=== PATIENT | female | born 1950 | race American Indian/Alaskan Native ===

== ENCOUNTER 2018-05-18 23:50 | Emergency (ER) | payer OTHER ==
[2018-05-19 00:01] VITALS: BMI 37.1
[2018-05-19 00:03] VITALS: RESP 16; TEMP 98.3
--- NOTE | 2018-05-19 01:04 | ED PDOC ---
Arrival/HPI - General Chief Complaint: High Blood Pressure Time Seen by Provider: 05/18/18 23:57 Historian: Patient - History of Present Illness Narrative History of Present Illness (Text): 05/19/18 23:57 Isabel Pereira is a 68 year old female, with a past medical history of hypertension, arthritis, hyperlipidemia, and constipation, who presents to the emergency room complaining of hypertension. Patient also notes associated frontal headache described as heaviness above the left eye. Patient appreciates blood pressure of 196/110 at home. Patient states checking her blood pressure bid and normally reports pressures between 120-130 / 90. Patient informs taking metropolol and losartan for hypertension, but has since stopped taking losartan since 1 week due to recall. Patient denies any fevers, chills, dizziness, vision changes, chest pain, shortness of breath, dyspnea on exertion, cough, abdominal pain, nausea, vomiting, diarrhea, dysuria, hematuria, back pain, neck pain, or any other complaint. Time/Duration: Prior to Arrival Symptom Onset: Sudden Symptom Course: Unchanged Quality: Other (headache describes as "heaviness") Activities at Onset: Light Context: Home Past Medical History - Provider Review Nursing Documentation Reviewed: Yes - Infectious Disease Hx of Infectious Diseases: None - Cardiac Hx Hypertension: Yes - Pulmonary Hx Respiratory Disorders: No - Hematological/Oncological Hx Hepatitis B: Yes - Musculoskeletal/Rheumatological Hx Arthritis: Yes - Psychiatric Hx Substance Use: No - Surgical History Other/Comment: lump removed from left breast - Anesthesia Hx Anesthesia: No Family/Social History - Physician Review Nursing Documentation Reviewed: Yes Family/Social History: No Known Family HX Smoking Status: Never Smoked Hx Alcohol Use: No Hx Substance Use: No Allergies/Home Meds Allergies/Adverse Reactions: Allergies No Known Allergies Allergy (Verified 05/18/18 23:58) Review of Systems - Physician Review All systems were reviewed & negative as marked: Yes - Review of Systems Constitutional: absent: Fevers, Other (chills) Eyes: absent: Vision Changes Respiratory: absent: SOB, Cough Cardiovascular: Other (Hypertension). absent: Chest Pain, [place]AN[place] Gastrointestinal: absent: Abdominal Pain, Diarrhea, Nausea, Vomiting Genitourinary Female: absent: Dysuria, Hematuria Musculoskeletal: absent: Back Pain, Neck Pain Neurological: Headache (headache described as "heaviness" above left eye). absent: Dizziness Physical Exam Vital Signs Reviewed: Yes Vital Signs Temp Pulse Pulse Resp BP BP Pulse Ox 05/19/18 00:39 67 153/81 H 05/19/18 00:10 65 153/81 H 05/18/18 23:51 98.3 F 72 16 153/81 H 98 Temperature: Afebrile Blood Pressure: Normal Pulse: Regular Respiratory Rate: Normal Appearance: Positive for: Well-Appearing, Non-Toxic, Comfortable Pain Distress: None Mental Status: Positive for: Alert and Oriented X 3 - Systems Exam Head: Present: Atraumatic, Normocephalic Pupils: Present: PERRL Extroacular Muscles: Present: EOMI Conjunctiva: Present: Normal Mouth: Present: Moist Mucous Membranes Neck: Present: Normal Range of Motion Respiratory/Chest: Present: Clear to Auscultation, Good Air Exchange. No: Respiratory Distress, Accessory Muscle Use Cardiovascular: Present: Regular Rate and Rhythm, Normal S1, S2. No: Murmurs Abdomen: No: Tenderness, Distention, Peritoneal Signs Back: Present: Normal Inspection Upper Extremity: Present: Normal Inspection. No: Cyanosis, Edema Lower Extremity: Present: Normal Inspection. No: Edema Skin: Present: Warm, Dry, Normal Color. No: Rashes Psychiatric: Present: Alert, Oriented x 3, Normal Insight, Normal Concentration Medical Decision Making ED Course and Treatment: 05/19/18 23:57 Impression: Patient is a 68 year old female who presents to the emergency department complaining of hypertension. Patient appreciates blood pressure of 196/110 prior to arrival. Patient notes her blood pressure is usually around 120 - 130 / 80. Patient reports associated headache above left eye. Differential Diagnosis included but are not limited to: Plan: -- CT Head w/o contrast -- EKG -- Tylenol 325 mg -- lisinopril -- Reassess and disposition Prior Visits: Notes and results from previous visits were reviewed. Progress Notes: 05/19/18 21:04 - RAD Interpretation Narrative RAD Interpretations (Text): 05/19/18 12:57 CT Head shows: COMMENTS: There is normal configuration of sella turcica. There are no intra or extra- axial collections. There is no mass effect or midline shift. There is no evidence of hematoma formation. No hydrocephalus is present. The ventricles are symmetrical. No abnormal calcifications are present. There is diffuse age-appropriate cerebellar and cerebral atrophy with proportionally dilated ventricles and cortical sulci. There are bilateral periventricular and subcortical white matter hypolucencies compatible with mild chronic microvascular disease. Otherwise, no significant focal abnormalities are seen either in the posterior fossa or supratentorial compartment. IMPRESSION: 1. Age-appropriate cerebellar and cerebral atrophy. 2. Mild chronic microvascular disease. 3. No evidence of acute intracranial pathology. Electronically signed on May 19, 2018 2:02:52 AM EDT by: Olamide Parker M.D., Certified by JOHN PAUL, MSK, Neuroradiology Radiology Orders: 05/19/18 00:21 HEAD W/O CONTRAST [CT] Stat Media Planner / Buyer: Radiologist - Medication Orders Current Medication Orders: Discontinued Medications Acetaminophen (Tylenol 325mg Tab) 650 mg PO STAT STA Stop: 05/19/18 00:24 Last Admin: 05/19/18 00:39 Dose: 650 mg CHARITY Pain/Vitals Document 05/19/18 00:39 KV (Rec: 05/19/18 00:40 KV [id number]) Pain Reassessment Is This A Pain ReAssessment? No Sleep Is patient sleeping during reassessment? No Presence of Pain Presence of Pain Yes Pain Scale Used Protocol: PSCALES Pain Scale Used Numeric Location Pain Location Body Train Controller Description Constant Intensity 5 Scale Used Numeric Lisinopril (Zestril) 10 mg PO STAT STA Stop: 05/19/18 00:31 Last Admin: 05/19/18 00:39 Dose: 10 mg [facility] Pulse and Blood Pressure Document 05/19/18 00:39 KV (Rec: 05/19/18 00:39 KV [id number]) Pulse Pulse Rate (60-90) 67 Blood Pressure Blood Pressure (100/60-150/90) 153/81 - Scribe Statement The provider has reviewed the documentation as recorded by the Scribe Eleazar Miranda All medical record entries made by the Scribe were at my direction and personally dictated by me. I have reviewed the chart and agree that the record accurately reflects my personal performance of the history, physical exam, medical decision making, and the department course for this patient. I have also personally directed, reviewed, and agree with the discharge instructions and disposition. Disposition/Present on Arrival - Present on Arrival Any Indicators Present on Arrival: No History of DVT/PE: No History of Uncontrolled Diabetes: No Urinary Catheter: No History of Decub. Ulcer: No History Surgical Site Infection Following: None - Disposition Have Diagnosis and Disposition been Completed?: Yes Diagnosis: Hypertension Disposition: HOME/ ROUTINE Disposition Time: 03:55 Condition: IMPROVED Discharge Instructions (ExitCare): High Blood Pressure in Adults Additional Instructions: follow up with pmd for blood pressure medicine Prescriptions: Lisinopril [Prinivil] 10 mg PO DAILY #10 tablet Forms: [employer] (Frisian)
[2018-05-19 01:32] VITALS: PULSE 60; O2SAT 98
[2018-05-19] MEDS ORDERED: TraMADol/Apap 37.5/325 mg Tab PO STA (02:28)
[2018-05-19] MEDS ORDERED: Oxycodone/Acetaminophen 5/325 mg Tab PO STA (02:51)
[2018-05-19 03:04] VITALS: BP 155/87
--- NOTE | 2018-05-19 09:27 | CT ---
Date of service: 05/19/2018 PROCEDURE: CT HEAD WITHOUT CONTRAST. HISTORY: Headache. Hypertension. COMPARISON: None available. TECHNIQUE: Axial computed tomography images were obtained through the head/brain without intravenous contrast. Radiation dose: Total exam DLP = 850.33 mGy-cm. This CT exam was performed using one or more of the following dose reduction techniques: Automated exposure control, adjustment of the mA and/or kV according to patient size, and/or use of iterative reconstruction technique. FINDINGS: HEMORRHAGE: No acute parenchymal, subarachnoid or extra-axial hemorrhage. BRAIN: No evidence of large acute infarct. Suspect minimal chronic periventricular white matter ischemic changes. Mild generalized volume loss No obvious parenchymal nor extra-axial masses or collections seen on this noncontrast exam VENTRICLES: No obstructive hydrocephalus CALVARIUM: Unremarkable. PARANASAL SINUSES: Unremarkable as visualized. No significant inflammatory changes. MASTOID AIR CELLS: Unremarkable as visualized. No inflammatory changes. OTHER FINDINGS: None. IMPRESSION: Suspect minor chronic white matter ischemic changes. Mild generalized volume loss.
--- NOTE | 2018-05-19 10:41 | CARD ---
APPROVED REPORT Date of service: 05/19/2018 EKG Measurement Heart [id number] <Conclusion> Sinus rhythm with 1st degree AV block Right bundle branch block Left anterior fascicular block Bifascicular block Abnormal ECG
== END 2018-05-19 03:55 | disposition home or self-care (01) ==
LOC: ED 23:50
DX: I10 Essential (primary) hypertension (principal); E78.5 Hyperlipidemia, unspecified

== ENCOUNTER 2018-05-21 12:57 | Emergency (ER) | payer OTHER ==
[2018-05-21 12:57] VITALS: BMI 37.1
[2018-05-21 13:05] VITALS: RESP 18; TEMP 98.8
--- NOTE | 2018-05-21 13:24 | ED PDOC ---
Arrival/HPI - General Chief Complaint: High Blood Pressure Time Seen by Provider: 05/21/18 13:05 Historian: Patient - History of Present Illness Narrative History of Present Illness (Text): 05/21/18 13:05 Isabel Pereira is a 68 year old female, with a past medical history of hypertension, arthritis, hyperlipidemia, and constipation, who presents to the emergency department complaining of hypertension today. States checks BP every day on home machine. Patient notes mild headache is focused to the back of the head. Patient informs her blood pressure at home was 169/104 and is usually 130-140/90. Patient informs taking anti-hypertensive medicine today with no improvement. Patient informs her PMD prescribed metropolol due to losartan recall 1 week ago which is when her BP began going up. Patient appreciates secondary complaint of arthritis. She notes improvement with anti-inflammatory medications. Patient was seen in the emergency department 3 days ago for similar complaints; head CT was unremarkable. Patient denies any fevers, chills, shortness of breath, dyspnea on exertion, nausea, vomiting, or any other complaints. Time/Duration: > week Symptom Onset: Gradual Symptom Course: Unchanged Activities at Onset: Light Context: Home Past Medical History - Provider Review Nursing Documentation Reviewed: Yes - Infectious Disease Hx of Infectious Diseases: None - Reproductive Menopause: Yes - Cardiac Hx Hypertension: Yes - Pulmonary Hx Respiratory Disorders: No - Hematological/Oncological Hx Hepatitis B: Yes - Musculoskeletal/Rheumatological Hx Arthritis: Yes - Psychiatric Hx Substance Use: No - Surgical History Other/Comment: lump removed from left breast - Anesthesia Hx Anesthesia: No Family/Social History - Physician Review Nursing Documentation Reviewed: Yes Family/Social History: No Known Family HX Smoking Status: Never Smoked Hx Alcohol Use: No Hx Substance Use: No Allergies/Home Meds Allergies/Adverse Reactions: Allergies No Known Allergies Allergy (Verified 05/21/18 13:05) Home Medications: Home Meds Medication Instructions Recorded Confirmed Calcium Carbonate/Vitamin D3 1 tab PO DAILY 05/21/18 05/21/18 [Calcium 600 + Vit D Tablet] Docusate [Colace] 100 mg PO DAILY 05/21/18 05/21/18 Metoprolol Succinate [Toprol Xl] 25 mg PO DAILY 05/21/18 05/21/18 Polyethylene Glycol 3350 [Miralax] 1 cap PO DAILY 05/21/18 05/21/18 Pravastatin Sodium [Pravachol] 40 mg PO DAILY 05/21/18 05/21/18 Valsartan/Hydrochlorothiazide 1 tab PO DAILY 05/21/18 05/21/18 [Valsartan-Hctz 160-25 mg Tab] Review of Systems - Physician Review All systems were reviewed & negative as marked: Yes - Review of Systems Constitutional: absent: Fevers Respiratory: absent: SOB Physical Exam - Physical Exam Narrative Physical Exam (Text): 05/21/18 13:05 Constitutional: No acute distress. Head: Normocephalic. Atraumatic. Eyes: PERRL. ENT: Moist mucous membranes. Neck: Supple. Cardiovascular: Regular rate. Chest: No tenderness. Respiratory: Clear to auscultation bilaterally. GI: Anterior ventral hernia. Back: No CVA tenderness. Musculoskeletal: No tenderness or swelling of extremities. Skin: No rash. Neurologic: Alert, no focal deficit. GCS = 15, CN II - XII Intact, speech normal. Vital Signs Reviewed: Yes Vital Signs Temp Pulse Resp BP Pulse Ox 05/21/18 13:03 98.8 F 71 18 170/90 H 100 Temperature: Afebrile Blood Pressure: Hypertensive Pulse: Regular Respiratory Rate: Normal Appearance: Positive for: Well-Appearing, Non-Toxic, Comfortable Pain Distress: None Mental Status: Positive for: Alert and Oriented X 3 Medical Decision Making ED Course and Treatment: 05/21/18 13:05 Impression: Patient is a 68 year old female who presents to the emergency department complaining of mild headache and hypertension since 1-2 weeks ago. Patient was seen for similar complaints 3 days ago; CT head was unremarkable. Plan: -- Reassess and disposition Prior Visits: Notes and results from previous visits were reviewed. Progress Notes: 05/21/18 13:05 Spoke to patient at length, expressed importance of follow-up with PMD to prescribe appropriate hypertensive medication. No indication for acute blood pressure management in ED setting. Instructed to return to ED immediately for severe headache, chest pain, dyspnea, back pain, neurological symptoms. - Scribe Statement The provider has reviewed the documentation as recorded by the Scribmillicent Miranda All medical record entries made by the Scribe were at my direction and personally dictated by me. I have reviewed the chart and agree that the record accurately reflects my personal performance of the history, physical exam, medical decision making, and the department course for this patient. I have also personally directed, reviewed, and agree with the discharge instructions and disposition. Disposition/Present on Arrival - Present on Arrival Any Indicators Present on Arrival: No History of DVT/PE: No History of Uncontrolled Diabetes: No Urinary Catheter: No History of Decub. Ulcer: No History Surgical Site Infection Following: None - Disposition Have Diagnosis and Disposition been Completed?: Yes Diagnosis: Hypertension Disposition: HOME/ ROUTINE Disposition Time: 13:22 Condition: GOOD Discharge Instructions (ExitCare): High Blood Pressure in Adults Referrals: FAMILY PROVIDER,NO [Primary Care Provider] - Follow up with primary Forms: [facility] (I[place]ic)
[2018-05-21 14:01] VITALS: BP 154/83; PULSE 60; O2SAT 99
== END 2018-05-21 13:59 | disposition home or self-care (01) ==
LOC: ED 12:57
DX: I10 Essential (primary) hypertension (principal)

== ENCOUNTER 2018-06-17 11:41 | Outpatient (CLI) | payer OTHER | END 2018-06-17 11:42 | disposition home or self-care (01) | LOC: RAD 11:41 ==